=== PATIENT | female | born 1955 | race Caucasian/White ===

== ENCOUNTER 2016-12-29 12:49 | Emergency (ER) | payer BC | END 2016-12-29 13:14 | disposition home or self-care (01) | LOC: ER 12:49 | PROC: 2W3TXYZ Immobilization of Left Foot using Other Device (ICD-10-PCS; principal; 2016-12-29) | DX: S93.602A Unspecified sprain of left foot, initial encounter (principal); S83.92XA Sprain of unspecified site of left knee, initial encounter; S90.412A Abrasion, left great toe, initial encounter; W01.0XXA Fall on same level from slipping, tripping and stumbling without subsequent striking against object, initial encounter | CPT/HCPCS: 73560-LT; 73630-LT; 99283; A9270-GY ==